=== PATIENT | male | born 1930 | race Two or more races ===

== ENCOUNTER 2017-09-24 16:43 | Inpatient (IN) | payer MEDICARE ==
[~2017-09-24] VITALS: Ht 175.3 cm; Wt 73.5 kg
[2017-09-24] MEDS ORDERED: DEXTROSE 50% 50 ML DISP.SYRIN IV PRN (17:15)
[2017-09-24 17:41] VITALS: BP 96/52
[2017-09-24] MEDS ORDERED: IPRA3AMP IH ×2 (17:57)
[2017-09-24] MEDS ORDERED: PANT40TA2 PO (17:57)
[2017-09-24] MEDS ORDERED: RIVA10TA PO (17:57)
[2017-09-24] MEDS ORDERED: BUME1TAB4 PO (17:57)
[2017-09-24] MEDS ORDERED: METO-358 PO (17:57)
[2017-09-24] MEDS ORDERED: ATOR20TA PO (17:57)
[2017-09-24] MEDS ORDERED: HYDR-3326 PO (17:57)
[2017-09-24] MEDS ORDERED: ACET-73 PO (17:57)
[2017-09-24] MEDS ORDERED: ISOS30TA6 PO (17:57)
[2017-09-24] MEDS ORDERED: DOCU-141 PO (17:57)
[2017-09-24] MEDS ORDERED: FLUT9.9S NS (17:57)
[2017-09-24] MEDS ORDERED: ONDA4TAB5 PO (17:57)
[2017-09-24] MEDS ORDERED: INSU200I SQ (17:57)
[2017-09-24] MEDS ORDERED: TIOT4MIS3 IH (17:57)
[2017-09-24] MEDS ORDERED: CHOL400T32 PO (17:57)
--- NOTE | 2017-09-24 19:30 | NUR ---
PT IN ROOM ALERT AWAKE ORIENTED SITTING UP IN CHAIR IN NO ACUTE DISTRESS. ABLE TO FOLLOW SIMPLE COMMANDS WITHOUT DIFFICULTY. NOTED WITH NON PRODUCTIVE COUGH WITH COURSE BILATERAL LUNGS. PT IS ON CONTINUOUS OXYGEN 3L/MIN VIA N/C. DENIES ANY PAIN, HEADACHES, OR SOB. NO S/S OF HYPER/HYPOGLYCEMIA. SKIN TO COCCYX NOTED REDNESS WITH NO SKIN BREAKDOWN. BILATERAL UPPER EXTREMITIES NOTED WITH BRUISING. PT REMINDED OF FLUID RESTRICTION AND TO USE CALL LIGHT FOR ASSISTANCE WHEN NEEDED. MD AWARE OF AWAITING MEDICATION ORDERS. CONTINUE TO MONITOR. URINAL PLACED WITHIN REACH, HOB ELEVATED 30 DEGREES AND 3 SIDE RAILS RAISED.
[2017-09-24 20:05] VITALS: BP 92/64
[2017-09-24] MEDS: BLOOD SUGAR DIAGNOSTIC 1 EACH STRIP VI SCH (20:59)
[2017-09-24] MEDS: INSULIN REGULAR, HUMAN 300 UNIT/3 ML VIAL SQ PRN (21:05)
--- NOTE | 2017-09-25 06:00 | NUR ---
Pt in room alert awake sitting up in chair. Pt's oxygen now 2.5L/min and denies any SOB or pain. Able to follow simple commands. Call light placed within reach. Encouraged deep breathing exercises. Continue to monitor.
[2017-09-25] MEDS: BLOOD SUGAR DIAGNOSTIC 1 EACH STRIP VI SCH ×4 (06:32→20:01)
[2017-09-25 08:33] VITALS: BP 133/70
[2017-09-25] MEDS ORDERED: ISOSORBIDE MONONITRATE 30 MG TAB.SR.24H PO SCH (09:00)
[2017-09-25] MEDS ORDERED: HYDROCODONE/APAP 5-325MG TABLET PO PRN ×2 (09:00)
[2017-09-25] MEDS ORDERED: RIVAROXABAN 10 MG TABLET PO SCH (09:00)
[2017-09-25] MEDS ORDERED: METOPROLOL SUCCINATE XL 100 MG TAB.SR.24H PO SCH (09:00)
[2017-09-25] MEDS ORDERED: INSULIN LISPRO 1000 UNITS/10 ML VIAL(HUMALOG) SQ SCH (09:00)
[2017-09-25] MEDS ORDERED: PANTOPRAZOLE SODIUM 40 MG TABLET.DR PO SCH (09:00)
[2017-09-25] MEDS ORDERED: IPRATROPIUM BROMIDE 0.5 MG/2.5 ML NEBU NEB PRN (09:00)
[2017-09-25] MEDS ORDERED: ONDANSETRON HCL 4 MG TABLET PO PRN (09:00)
[2017-09-25] MEDS ORDERED: ACETAMINOPHEN 325 MG TABLET PO PRN (09:15)
[2017-09-25] MEDS ORDERED: ALBUTEROL SULFATE 2.5 MG/ 0.5 ML NEBU NEB PRN (09:30)
[2017-09-25] MEDS: CHOLECALCIFEROL 400 UNITS TABLET PO SCH (10:31)
[2017-09-25] MEDS: BUMETANIDE 1 MG TABLET PO SCH ×2 (10:32→17:26)
[2017-09-25] MEDS: FLUTICASONE PROP NASAL SPRAY 16 GM BOTTLE NS SCH (10:33)
[2017-09-25] MEDS: IPRATROPIUM BROMIDE 0.5 MG/2.5 ML NEBU NEB SCH ×2 (10:50→19:22)
[2017-09-25] MEDS: ALBUTEROL SULFATE 2.5 MG/ 0.5 ML NEBU NEB SCH ×2 (10:50→19:22)
[2017-09-25] MEDS: STIOLTO RESPIMAT INHALER INH SCH (11:39)
[2017-09-25] MEDS ORDERED: [UNRECOGNIZED DRUG - REMARK] SQ PRN (11:45)
[2017-09-25] MEDS ORDERED: [UNRECOGNIZED DRUG - REMARK] SQ PRN (11:45)
[2017-09-25] MEDS ORDERED: DEXTROSE 50% 50 ML DISP.SYRIN IV PRN ×2 (11:45)
[2017-09-25] MEDS: METOPROLOL SUCCINATE XL 50 MG TAB.SR.24H PO SCH (13:30)
[2017-09-25] MEDS: ISOSORBIDE MONONITRATE 30 MG TAB.SR.24H PO SCH (13:30)
[2017-09-25] MEDS: PANTOPRAZOLE SODIUM 40 MG TABLET.DR PO SCH (13:31)
[2017-09-25] MEDS ORDERED: FERR325T28 PO (13:37)
[2017-09-25 14:35] LABS: BASOPHILS % (AUTO) 0.8 % (0.0-2.0); EOSINOPHILS # (AUTO) 0.1 K/uL (0.0-0.7); EOSINOPHILS % (AUTO) 1.6 % (0.0-7.0); HEMOGLOBIN 9.8 g/dL (12.5-16.3); LYMPHOCYTES # (AUTO) 0.8 K/uL (20.0-40.0); LYMPHOCYTES % (AUTO) 13.6 % (20.5-51.5); MEAN CORPUSCULAR HEMOGLOBIN 23.7 uug (23.8-33.4); MEAN CORPUSCULAR HGB CONC 32 g/dL (32.5-36.3); MEAN CORPUSCULAR VOLUME 75.2 fL (73.0-96.2); MONOCYTES # (AUTO) 0.5 K/uL (2.0-10.0); NEUTROPHILS # (AUTO) 4.2 K/uL (1.8-8.9); PLATELET COUNT (AUTO) 114 K/uL (152-348); RED BLOOD CELL COUNT(AUTO) 4.12 MIL/uL (4.06-5.63); WHITE BLOOD COUNT (AUTO) 5.6 K/uL (3.6-10.2)
[2017-09-25 14:38] LABS: CARBON DIOXIDE 34 mmol/L (21-32); CHLORIDE 97 mmol/L (98-107); CREATININE 1.4 mg/dL (0.6-1.3); GLUCOSE 129 mg/dL (74-106); UREA NITROGEN, BLOOD 42 mg/dL (7-18)
[2017-09-25 14:44] LABS: ALANINE AMINOTRANSFERASE 40 U/L (16-63); ALKALINE PHOSPHATASE 112 U/L (50-136); ASPARTATE AMINOTRANSFERASE 36 U/L (15-37); BILIRUBIN,TOTAL 0.6 mg/dL (0.2-1.0); TOTAL PROTEIN, SERUM 6.7 g/dL (6.4-8.2)
[2017-09-25] MEDS ORDERED: BLOOD SUGAR DIAGNOSTIC 1 EACH STRIP VI SCH ×2 (16:30→21:00)
[2017-09-25] MEDS: RIVAROXABAN 10 MG TABLET PO SCH (17:30)
[2017-09-25] MEDS: INSULIN REGULAR, HUMAN 300 UNIT/3 ML VIAL SQ PRN (17:46)
[2017-09-25 19:30] VITALS: BP 124/53
--- NOTE | 2017-09-25 19:30 | NUR ---
PT IN ROOM SITTING UP IN CHAIR ALERT, AWAKE, AND ORIENTED IN NO RESP DISTRESS. PT STATES MILD LABORED BREATHING UPON EXERTION. MAINTAINING OXYGEN AT 3L/MIN VIA N/C. ABLE TO FOLLOW SIMPLE COMMANDS WITHOUT DIFFICULTY. REQUIRES STANDBY ASSISTANCE WITH ADLS. REMINDED PT TO USE CALL LIGHT FOR ASSISTANCE. URINAL AT BEDSIDE AND PT MADE AWARE OF FLUID RESTRICTION FOR THE REMAINDER OVER NIGHT. VERBALIZED UNDERSTANDING. NO S/S OF HYPER/HYPOGLYCEMIA. V/S ARE WNL. CONTINUE TO MONITOR.
--- NOTE | 2017-09-25 19:38 | NUR ---
EDEMA NOTED TO LOWER BACK AND WAIST. +1PITTING Addendum: 09/25/17 at 1938 by Criss Rutherford RN Amended: Links added.
[2017-09-25] MEDS: ATORVASTATIN 20 MG TABLET PO SCH (20:01)
[2017-09-26] MEDS: ALBUTEROL SULFATE 2.5 MG/ 0.5 ML NEBU NEB SCH ×4 (01:08→19:54)
[2017-09-26] MEDS: IPRATROPIUM BROMIDE 0.5 MG/2.5 ML NEBU NEB SCH ×4 (01:08→19:54)
--- NOTE | 2017-09-26 05:30 | NUR ---
PT ABLE TO SLEEP IN ROOM WITHOUT DIFFICULTY. MAINTAINING OXYGEN 3L/MIN VIA N/C. PT COMFORTABLE SLEEPING WITH HOB 45 DEGREES OR SITTING ON THE SIDE OF BED. PT REMINDED OF FLUID RESTRICTION AND TO USE CALL LIGHT FOR ASSISTANCE. NO EPISODES OF SOB, PAIN, OR DISCOMFORT. NO S/S OF HYPER/HYPOGLYCEMIA. CONTINUE TO MONITOR.
[2017-09-26] MEDS: BLOOD SUGAR DIAGNOSTIC 1 EACH STRIP VI SCH ×4 (07:33→21:13)
[2017-09-26 08:00] VITALS: BP 111/63
[2017-09-26] MEDS: PANTOPRAZOLE SODIUM 40 MG TABLET.DR PO SCH (08:26)
[2017-09-26] MEDS: CHOLECALCIFEROL 400 UNITS TABLET PO SCH (08:26)
[2017-09-26] MEDS: BUMETANIDE 1 MG TABLET PO SCH ×2 (08:26→16:57)
[2017-09-26] MEDS: METOPROLOL SUCCINATE XL 50 MG TAB.SR.24H PO SCH (08:27)
[2017-09-26] MEDS: ISOSORBIDE MONONITRATE 30 MG TAB.SR.24H PO SCH (08:27)
[2017-09-26] MEDS: FLUTICASONE PROP NASAL SPRAY 16 GM BOTTLE NS SCH (08:27)
[2017-09-26] MEDS: STIOLTO RESPIMAT INHALER INH SCH (08:28)
[2017-09-26] MEDS: INSULIN REGULAR, HUMAN 300 UNIT/3 ML VIAL SQ PRN ×3 (08:28→21:26)
--- NOTE | 2017-09-26 10:00 | NUR ---
pt seen on rounding. pt continues to be on 2 liters oxygen and desats without it. bp wnl limits. pt continues to be on 1200 fluid restrictions. pt understands. no new injuries. pt continues to have edema on back and legs. showed non productive cough. no sob noted. will continue to monitor.
--- NOTE | 2017-09-26 15:17 | NUR ---
pt family requested to have therapeutic pass. agreed and gave torb. family signed therapeutic pass. pt left at 1300 and returned at 150o. vitals stable. pt had own oxygen tank. cxr ordered by md muhammad. will continue to monitor.
[2017-09-26] MEDS: RIVAROXABAN 10 MG TABLET PO SCH (17:01)
--- NOTE | 2017-09-26 18:51 | NUR ---
pt stable throughout the day. xrays seen and pt had infiltrates. awaiting md orders. pt continues to be stable. pt had out on pass and came back to hospital stable. fluid restrictions implemented. will endorse to shift production associate nurse.
--- NOTE | 2017-09-26 19:50 | NUR ---
Pt sitting on the chair at bedside and receiving his breathing treatment. On 2L O2 via NC, saturating and tolerating well. No acute distress noted. No SOB. Wheezing noted on the right side during auscultation. No c/o difficulty breathing. Safety measures maintained. Call light and personal belongings within reach. Will continue to monitor.
[2017-09-26] MEDS: DOCUSATE SODIUM 100 MG CAPSULE PO SCH (21:12)
[2017-09-26] MEDS: ATORVASTATIN 20 MG TABLET PO SCH (21:12)
[2017-09-26 21:47] VITALS: BP 100/65
[2017-09-27] MEDS: ALBUTEROL SULFATE 2.5 MG/ 0.5 ML NEBU NEB SCH ×4 (00:49→14:20)
[2017-09-27] MEDS: IPRATROPIUM BROMIDE 0.5 MG/2.5 ML NEBU NEB SCH ×4 (00:49→14:20)
--- NOTE | 2017-09-27 05:51 | NUR ---
Pt slept comfortably at night. Meds and insulin coverage given per MD's order. Pt compliant. Received scheduled breathing treatment, tolerating well. Still on 2L O2 via NC, saturating well and WNL. All needs attended to promptly. Will endorse to day shift RN. Continue to monitor.
[2017-09-27] MEDS: BLOOD SUGAR DIAGNOSTIC 1 EACH STRIP VI SCH ×4 (06:34→21:14)
[2017-09-27 07:30] VITALS: BP 106/61
[2017-09-27] MEDS: STIOLTO RESPIMAT INHALER INH SCH (08:12)
[2017-09-27] MEDS: FLUTICASONE PROP NASAL SPRAY 16 GM BOTTLE NS SCH (08:12)
[2017-09-27] MEDS: PANTOPRAZOLE SODIUM 40 MG TABLET.DR PO SCH (08:13)
[2017-09-27] MEDS: BUMETANIDE 1 MG TABLET PO SCH ×2 (08:13→16:48)
[2017-09-27] MEDS: METOPROLOL SUCCINATE XL 50 MG TAB.SR.24H PO SCH (08:13)
[2017-09-27] MEDS: ISOSORBIDE MONONITRATE 30 MG TAB.SR.24H PO SCH (08:13)
[2017-09-27] MEDS: CHOLECALCIFEROL 400 UNITS TABLET PO SCH (08:13)
[2017-09-27] MEDS: INSULIN REGULAR, HUMAN 300 UNIT/3 ML VIAL SQ PRN ×4 (08:18→21:19)
--- NOTE | 2017-09-27 10:12 | NUR ---
pt seen on rounding. pt breathing and hr within normal limits. no sob noted. pt continues to desat without oxygen. rt states that pt is clear of wheezing. will continue to monitor.
[2017-09-27] MEDS: RIVAROXABAN 10 MG TABLET PO SCH (16:46)
--- NOTE | 2017-09-27 17:18 | NUR ---
md ordered to have post void bladder scan. bladder scan done. pt retained 51 ml total. will continue to monitor for signs of retention.
[2017-09-27 20:08] VITALS: BP 87/56
[2017-09-27] MEDS ORDERED: TAMSULOSIN HCL 0.4 MG CAP.SR.24H PO SCH (21:00)
[2017-09-27] MEDS: ATORVASTATIN 20 MG TABLET PO SCH (21:15)
[2017-09-28] MEDS: IPRATROPIUM BROMIDE 0.5 MG/2.5 ML NEBU NEB SCH ×4 (00:33→19:06)
[2017-09-28] MEDS: ALBUTEROL SULFATE 2.5 MG/ 0.5 ML NEBU NEB SCH ×4 (00:33→19:06)
--- NOTE | 2017-09-28 03:38 | NUR ---
Post void bladder scan done, 673cc noted. call center dispatcher MD (Dr. Connelly) made aware, ordered for straight cath. Order carried out and done, 700cc was taken out via straight cath. Will continue to monitor.
[2017-09-28] MEDS: BLOOD SUGAR DIAGNOSTIC 1 EACH STRIP VI SCH ×4 (06:41→20:32)
--- NOTE | 2017-09-28 07:30 | NUR ---
Received asleep at around 0730, on via N/c, no sob noted , respiration even and unlabored, V/S stable, no distress noted. Will continue to monitor .
[2017-09-28 07:51] LABS: ALANINE AMINOTRANSFERASE 35 U/L (16-63); ALKALINE PHOSPHATASE 125 U/L (50-136); ASPARTATE AMINOTRANSFERASE 35 U/L (15-37); BILIRUBIN,TOTAL 0.8 mg/dL (0.2-1.0); CARBON DIOXIDE 32 mmol/L (21-32); CHLORIDE 98 mmol/L (98-107); CREATININE 1.5 mg/dL (0.6-1.3); GLUCOSE 108 mg/dL (74-106); MAGNESIUM 1.6 mg/dL (1.8-2.4); PHOSPHOROUS 3.2 mg/dL (2.5-4.9); POTASSIUM 3.8 mmol/L (3.5-5.1); UREA NITROGEN, BLOOD 45 mg/dL (7-18); URIC ACID 8.6 mg/dL (3.5-7.2)
[2017-09-28 08:21] VITALS: BP 113/49
[2017-09-28 08:21] LABS: BASOPHILS # (AUTO) 0.1 K/uL (0.0-8.0); BASOPHILS % (AUTO) 0.9 % (0.0-2.0); EOSINOPHILS # (AUTO) 0.1 K/uL (0.0-0.7); EOSINOPHILS % (AUTO) 1.2 % (0.0-7.0); HEMATOCRIT 32.2 % (36.7-47.1); HEMOGLOBIN 10.2 g/dL (12.5-16.3); LYMPHOCYTES # (AUTO) 0.9 K/uL (20.0-40.0); MEAN CORPUSCULAR HGB CONC 32 g/dL (32.5-36.3); MEAN CORPUSCULAR VOLUME 75.3 fL (73.0-96.2); MONOCYTES # (AUTO) 0.6 K/uL (2.0-10.0); MONOCYTES % (AUTO) 9.5 % (0.0-11.0); NEUTROPHILS # (AUTO) 4.3 K/uL (1.8-8.9); NEUTROPHILS % (AUTO) 72.4 % (38.5-71.5); PLATELET COUNT (AUTO) 116 K/uL (152-348); RED BLOOD CELL COUNT(AUTO) 4.27 MIL/uL (4.06-5.63); WHITE BLOOD COUNT (AUTO) 5.9 K/uL (3.6-10.2)
[2017-09-28] MEDS: STIOLTO RESPIMAT INHALER INH SCH (09:29)
[2017-09-28] MEDS: FLUTICASONE PROP NASAL SPRAY 16 GM BOTTLE NS SCH (09:29)
[2017-09-28] MEDS: PANTOPRAZOLE SODIUM 40 MG TABLET.DR PO SCH (09:31)
[2017-09-28] MEDS: ISOSORBIDE MONONITRATE 30 MG TAB.SR.24H PO SCH (09:32)
[2017-09-28] MEDS: BUMETANIDE 1 MG TABLET PO SCH ×2 (09:32→17:29)
[2017-09-28] MEDS: METOPROLOL SUCCINATE XL 50 MG TAB.SR.24H PO SCH (09:33)
[2017-09-28] MEDS: CHOLECALCIFEROL 400 UNITS TABLET PO SCH (09:34)
[2017-09-28] MEDS: INSULIN REGULAR, HUMAN 300 UNIT/3 ML VIAL SQ PRN ×2 (11:52→20:40)
--- NOTE | 2017-09-28 15:00 | NUR ---
Patient ambulates with PT in the hallway, tolerated well. Medication compliant , swallowed whole pills with no problem, no c/o pain noted, voided 100cc. Bladder scan done at 1030, 76cc noted. Showered with PT. Patient was up in the chair after shower, son at bedside, no s/s of distress noted. Will continue to monitor.
[2017-09-28] MEDS: RIVAROXABAN 10 MG TABLET PO SCH (17:29)
[2017-09-28 19:30] VITALS: BP 115/65
--- NOTE | 2017-09-28 19:45 | NUR ---
Pt resting comfortably in bed. AAO x4. On 2L O2 via NC, tolerating well. No acute distress noted. No c/o pain or discomfort. Monitoring for signs of retention. Pt voiding normally at this time. No abdominal distention noted. Pt aware and was instructed to report any signs of difficulty voiding or if unable to do so. Safety measures maintained. Call light and personal belongings within reach. Will continue to monitor.
[2017-09-28] MEDS: MAGNESIUM OXIDE 400 MG TABLET PO SCH (20:32)
[2017-09-28] MEDS: ATORVASTATIN 20 MG TABLET PO SCH (20:32)
[2017-09-28] MEDS: TAMSULOSIN HCL 0.4 MG CAP.SR.24H PO SCH (20:32)
[2017-09-29] MEDS: ALBUTEROL SULFATE 2.5 MG/ 0.5 ML NEBU NEB SCH ×4 (00:47→20:00)
[2017-09-29] MEDS: IPRATROPIUM BROMIDE 0.5 MG/2.5 ML NEBU NEB SCH ×4 (00:47→20:00)
--- NOTE | 2017-09-29 06:16 | NUR ---
Pt slept comfortably at night. VSS. Meds given per MD's order. Pt compliant with plan of care. All needs attended to promptly. Pt woke up early and sitting on the chair at bedside. Still on 2L O2 via NC, tolerating well. Voiding regularly, no distention noted. Voided 1500 mL during this shift. Will endorse to day shift RN. Continue to monitor.
[2017-09-29] MEDS: BLOOD SUGAR DIAGNOSTIC 1 EACH STRIP VI SCH ×4 (06:38→20:55)
[2017-09-29 08:29] VITALS: BP 126/58
[2017-09-29] MEDS: METOPROLOL SUCCINATE XL 50 MG TAB.SR.24H PO SCH (08:50)
[2017-09-29] MEDS: ISOSORBIDE MONONITRATE 30 MG TAB.SR.24H PO SCH (08:50)
[2017-09-29] MEDS: BUMETANIDE 1 MG TABLET PO SCH ×2 (08:50→16:58)
[2017-09-29] MEDS: PANTOPRAZOLE SODIUM 40 MG TABLET.DR PO SCH (08:50)
[2017-09-29] MEDS: STIOLTO RESPIMAT INHALER INH SCH (08:51)
[2017-09-29] MEDS: FLUTICASONE PROP NASAL SPRAY 16 GM BOTTLE NS SCH (08:51)
[2017-09-29] MEDS: INSULIN REGULAR, HUMAN 300 UNIT/3 ML VIAL SQ PRN ×4 (09:14→21:00)
--- NOTE | 2017-09-29 09:25 | NUR ---
i agree Addendum: 09/29/17 at 09 by SKIP LOU OT Amended: Links added.
[2017-09-29] MEDS: CHOLECALCIFEROL 1,000 UNIT TABLET PO SCH (11:45)
[2017-09-29] MEDS: DOCUSATE SODIUM 100 MG CAPSULE PO SCH (13:59)
--- NOTE | 2017-09-29 15:12 | NUR ---
pt seen o rounding. pt continues to be alert and oriented x 3. vitals stable. pt reduced o2 to 1.5 at 95%. will continue to monitor. pt assessed for post void bladder scan immediately after voiding. 0 ml retained. will continue to monitor.
[2017-09-29] MEDS: RIVAROXABAN 10 MG TABLET PO SCH (16:57)
--- NOTE | 2017-09-29 18:34 | NUR ---
reduced o2 to 1L and pt is satting at 95%. pt had a bowel movement. will endorse to shift superintendent caustic cresylate nurse.
--- NOTE | 2017-09-29 20:00 | NUR ---
Received pt in bed appearing to be asleep, but easily arousable to verbal stimuli and light touch. No acute distress noted. Verbally responsive and able to make needs known. Denies pain or discomfort. All safety measures and fall precautions maintained. Call light and all personal belongings within reach. Will continue to monitor.
[2017-09-29 20:21] VITALS: BP 113/70
[2017-09-29] MEDS: MAGNESIUM OXIDE 400 MG TABLET PO SCH (20:55)
[2017-09-29] MEDS: TAMSULOSIN HCL 0.4 MG CAP.SR.24H PO SCH (20:55)
[2017-09-29] MEDS: ATORVASTATIN 20 MG TABLET PO SCH (20:55)
[2017-09-30] MEDS: IPRATROPIUM BROMIDE 0.5 MG/2.5 ML NEBU NEB SCH ×4 (01:06→19:17)
[2017-09-30] MEDS: ALBUTEROL SULFATE 2.5 MG/ 0.5 ML NEBU NEB SCH ×4 (01:07→19:17)
[2017-09-30] MEDS: BLOOD SUGAR DIAGNOSTIC 1 EACH STRIP VI SCH ×4 (06:46→20:37)
[2017-09-30] MEDS: CHOLECALCIFEROL 1,000 UNIT TABLET PO SCH (08:51)
[2017-09-30] MEDS: FLUTICASONE PROP NASAL SPRAY 16 GM BOTTLE NS SCH (08:51)
[2017-09-30] MEDS: ALLOPURINOL 100 MG TABLET PO SCH (08:51)
[2017-09-30] MEDS: BUMETANIDE 1 MG TABLET PO SCH ×2 (08:51→16:20)
[2017-09-30] MEDS: ISOSORBIDE MONONITRATE 30 MG TAB.SR.24H PO SCH (08:52)
[2017-09-30] MEDS: METOPROLOL SUCCINATE XL 50 MG TAB.SR.24H PO SCH (08:52)
[2017-09-30] MEDS: PANTOPRAZOLE SODIUM 40 MG TABLET.DR PO SCH (08:52)
[2017-09-30] MEDS: INSULIN REGULAR, HUMAN 300 UNIT/3 ML VIAL SQ PRN ×3 (08:53→20:39)
[2017-09-30] MEDS: STIOLTO RESPIMAT INHALER INH SCH ×3 (08:53→14:06)
[2017-09-30 08:57] VITALS: BP 106/59
[2017-09-30] MEDS: RIVAROXABAN 10 MG TABLET PO SCH (16:22)
--- NOTE | 2017-09-30 18:31 | NUR ---
took last ventolin from pharmacy. returned boxes to pt family. no ventolin on pharmacy. no signs of retnetion during shift. pt given allopurinol for possible gout. pictures taken and placed in chart. will endorse to night oly nurse.
[2017-09-30 20:25] VITALS: BP 116/68
[2017-09-30] MEDS: ATORVASTATIN 20 MG TABLET PO SCH (20:32)
[2017-09-30] MEDS: MAGNESIUM OXIDE 400 MG TABLET PO SCH (20:33)
[2017-09-30] MEDS: TAMSULOSIN HCL 0.4 MG CAP.SR.24H PO SCH (20:33)
[2017-10-01] MEDS: IPRATROPIUM BROMIDE 0.5 MG/2.5 ML NEBU NEB SCH ×4 (00:45→20:09)
[2017-10-01] MEDS: ALBUTEROL SULFATE 2.5 MG/ 0.5 ML NEBU NEB SCH ×4 (00:45→20:09)
--- NOTE | 2017-10-01 05:33 | NUR ---
pt slept well through the night and was easily awoken, pt denied having any pain or difficulty breathing. pt respirations were increased with movement but pt denied having any SOB, pt tolerating well on 2LNC. all needs met safety measures are in place, call light within reach, bed alarm is on. Addendum: 10/01/17 at 0646 by DEREJE KNIGHT RN pt had a post void residual of 407ml in the morning after urinating 250ml, pt refused to be strait cath'ed, will continue to monitor.
[2017-10-01] MEDS: BLOOD SUGAR DIAGNOSTIC 1 EACH STRIP VI SCH ×4 (06:41→20:44)
[2017-10-01 07:46] VITALS: BP 108/65
[2017-10-01] MEDS: BUMETANIDE 1 MG TABLET PO SCH ×2 (08:21→16:52)
[2017-10-01] MEDS: METOPROLOL SUCCINATE XL 50 MG TAB.SR.24H PO SCH (08:22)
[2017-10-01] MEDS: ALLOPURINOL 100 MG TABLET PO SCH (08:23)
[2017-10-01] MEDS: ISOSORBIDE MONONITRATE 30 MG TAB.SR.24H PO SCH (08:23)
[2017-10-01] MEDS: PANTOPRAZOLE SODIUM 40 MG TABLET.DR PO SCH (08:24)
[2017-10-01] MEDS: FLUTICASONE PROP NASAL SPRAY 16 GM BOTTLE NS SCH (08:24)
[2017-10-01] MEDS: CHOLECALCIFEROL 1,000 UNIT TABLET PO SCH (08:24)
[2017-10-01] MEDS: STIOLTO RESPIMAT INHALER INH SCH (08:25)
--- NOTE | 2017-10-01 09:58 | NUR ---
pt seen on rounding. pt assessed. pt has wheezes on lung sounds. pt has leg edema pitting +2 but residing compared to admission. pt placed on 1 L satting wnl. bladder scan done and 90 retained. no catheterization noted. pt seen to have blood around nose. pt states that it is because of the high oxygen flow rate. cleaned nose. no bleeding seen. will continue to reassess for complications.
[2017-10-01] MEDS: INSULIN REGULAR, HUMAN 300 UNIT/3 ML VIAL SQ PRN ×3 (11:47→20:47)
[2017-10-01] MEDS: RIVAROXABAN 10 MG TABLET PO SCH (16:51)
--- NOTE | 2017-10-01 19:30 | NUR ---
Received patient from day shift RN. patient is currently stable with no signs of pain, sob, or acute distress. Pertinent assessment completed. Noted with o2 via NC at 1L. Vital signs WNL. patient on a 1500mL fluid restriction per day. patient aware and following fluid restriction. Room checked for safety. Provided clutter free environment in room to prevent patient from falls. Bed in low position & locked. Call light within reach. Will continue to monitor through shift.
[2017-10-01 20:44] VITALS: BP 105/67
[2017-10-01] MEDS: ATORVASTATIN 20 MG TABLET PO SCH (20:44)
[2017-10-01] MEDS: TAMSULOSIN HCL 0.4 MG CAP.SR.24H PO SCH (20:44)
[2017-10-01] MEDS: MAGNESIUM OXIDE 400 MG TABLET PO SCH (20:44)
--- NOTE | 2017-10-01 22:00 | NUR ---
Bladder scan performed per MD order. Bladder currently retaining 0cc. Patient just voided in urinal total of 300cc. Will continue to monitor through shift.
[2017-10-02] MEDS: IPRATROPIUM BROMIDE 0.5 MG/2.5 ML NEBU NEB SCH ×4 (01:06→18:51)
[2017-10-02] MEDS: ALBUTEROL SULFATE 2.5 MG/ 0.5 ML NEBU NEB SCH ×4 (01:06→18:51)
--- NOTE | 2017-10-02 06:07 | NUR ---
Patient slept well through the night. No acute distress noted. All needs attended to promptly. Medications administered per MD order. Patient voiding well through shift into urinal. No retention noted after bladder scan performed. Fluid restriction maintained through shift. No s/s of hyperglycemia or hypoglycemia noted. patient kept clean & dry. Safety measures implemented. Call light within reach. Will endorse to oncoming nurse.
[2017-10-02] MEDS: BLOOD SUGAR DIAGNOSTIC 1 EACH STRIP VI SCH ×4 (06:30→20:59)
[2017-10-02 07:00] VITALS: BP 98/53
--- NOTE | 2017-10-02 08:39 | NUR ---
WOUND CARE CONSULT WOUND CARE RECEIVED CONSULT FOR LEFT TOE 1ST DIGIT. WOUND CARE WILL DEFER CONSULT AND TREATMENT PLAN TO SURGICAL TEAM THEY ARE FOLLOWING. PATIENT WITH DAGMAR AT 17, ALL PRESSURE ULCER PREVENTION MEASURES NOTED TO BE IN PLACE AT THIS TIME.
[2017-10-02] MEDS: ISOSORBIDE MONONITRATE 30 MG TAB.SR.24H PO SCH (09:00)
[2017-10-02] MEDS: METOPROLOL SUCCINATE XL 50 MG TAB.SR.24H PO SCH (09:00)
[2017-10-02] MEDS: FLUTICASONE PROP NASAL SPRAY 16 GM BOTTLE NS SCH (09:58)
[2017-10-02] MEDS: BUMETANIDE 1 MG TABLET PO SCH ×2 (09:59→17:40)
[2017-10-02] MEDS: PANTOPRAZOLE SODIUM 40 MG TABLET.DR PO SCH (09:59)
[2017-10-02] MEDS: ALLOPURINOL 100 MG TABLET PO SCH (09:59)
[2017-10-02] MEDS: CHOLECALCIFEROL 1,000 UNIT TABLET PO SCH (09:59)
[2017-10-02] MEDS: STIOLTO RESPIMAT INHALER INH SCH (10:00)
--- NOTE | 2017-10-02 10:00 | NUR ---
Pt bladder scan revealed 0ml retention of urine, post void. Will continue to monitor as ordered.
--- NOTE | 2017-10-02 11:52 | NUR ---
SBAR report received, board updated. Pt assessed, denies any c/o pain and states feeling just fine. Compliant with all routine morning medications, Blood pressure meds held due to low BP of 105/49, 60. No distress noted. Pt agrees to comply with all therapies as scheduled. All safety and comfort needs met. Call light and personal belongings within reach. Family visiting at this time. Will continue to monitor.
[2017-10-02] MEDS: INSULIN REGULAR, HUMAN 300 UNIT/3 ML VIAL SQ PRN ×2 (12:35→21:01)
--- NOTE | 2017-10-02 13:58 | NUR ---
INTERDISCIPLINARY TEAM CONFERENCE
[2017-10-02] MEDS: RIVAROXABAN 10 MG TABLET PO SCH (17:44)
--- NOTE | 2017-10-02 18:28 | NUR ---
Pt comfortably resting in bed. Pt compliant with routine medications administration, BS 166, 3 units administered per sliding scale. All safety and comfort needs attended to. Call light placed within reach. Will continue to monitor and endorse to on coming night nurse.
[2017-10-02 19:30] VITALS: BP 98/53
--- NOTE | 2017-10-02 19:30 | NUR ---
Patient sitting at bedside on wheelchair at start of shift. Patient denies pain, any discomfort, or sob. No acute distress noted. Pertinent assessment completed. Patient noted with Right bump on groin. Pictures taken and placed in chart. Will inform MD. On 1500mL fluid restriction. Patient aware & compliant with MD orders. On 1L o2 via nc. Vital signs within range at start of shift. Call light within reach. Will continue to monitor through shift.
[2017-10-02] MEDS: ATORVASTATIN 20 MG TABLET PO SCH (20:59)
[2017-10-02] MEDS: MAGNESIUM OXIDE 400 MG TABLET PO SCH (20:59)
[2017-10-02] MEDS: TAMSULOSIN HCL 0.4 MG CAP.SR.24H PO SCH (20:59)
--- NOTE | 2017-10-02 22:15 | NUR ---
Patient voided 250cc of urine in urinal. Bladder scan performed. Currently retaining 481cc in bladder. Explained MD order to patient. Patient is refusing any insertion of guerrero catheters. Explained risks & benefits. Educated patient. Patient is still strongly refusing x3. Denies any pain or discomfort. patient says he does not have any urgencies. Will monitor if patient is urinating during shift & will perform bladder scan again after second void. Will inform MD if patient is still retaining.
[2017-10-03] MEDS: ALBUTEROL SULFATE 2.5 MG/ 0.5 ML NEBU NEB SCH ×4 (00:44→18:50)
[2017-10-03] MEDS: IPRATROPIUM BROMIDE 0.5 MG/2.5 ML NEBU NEB SCH ×4 (00:44→18:50)
--- NOTE | 2017-10-03 01:00 | NUR ---
Patient voided 200cc of urine in urinal. Bladder scan performed again to f/u on last PVR result. PVR is 33. Patient verbalizes he does not want bladder scan to be done anymore because he does not thing he needs it since he is urinating. Explained why bladder scan is being performed. Verbalizes understanding, but he is still saying he does not want it done. Patient made aware that I will inform MD regarding the situation and will endorse to day shift nurse to follow up.
[2017-10-03] MEDS: BLOOD SUGAR DIAGNOSTIC 1 EACH STRIP VI SCH ×4 (06:35→20:27)
[2017-10-03 07:00] VITALS: BP 129/54
--- NOTE | 2017-10-03 07:25 | NUR ---
RECEIVED REPORT FROM ANGLE ROLL OPERATOR NURSE, PATIENT IN BED AWAKE, COMPLAINING ABOUT THE ROOM MATE TAKING TOO MUCH SPACE IN THE ROOM, PATIENT WAS REASSURED THAT HE WILL GET EQUAL SPACE, AND PATIENTS ANXIETY WAS EASED. BED IN LOW POSITION, SIDE RAILS UP X2. PATIENTS WOUND IS DRY AND INTACT, NO BLEEDING. Addendum: 10/03/17 at 1837 by YURIY MCCALLUM RN WRONG PATIENT PLEASE DISREGARD
[2017-10-03] MEDS: ALLOPURINOL 100 MG TABLET PO SCH (08:17)
[2017-10-03] MEDS: BUMETANIDE 1 MG TABLET PO SCH ×2 (08:18→17:07)
[2017-10-03] MEDS: METOPROLOL SUCCINATE XL 50 MG TAB.SR.24H PO SCH (08:18)
[2017-10-03] MEDS: ISOSORBIDE MONONITRATE 30 MG TAB.SR.24H PO SCH (08:18)
[2017-10-03] MEDS: PANTOPRAZOLE SODIUM 40 MG TABLET.DR PO SCH (08:18)
[2017-10-03] MEDS: CHOLECALCIFEROL 1,000 UNIT TABLET PO SCH (08:19)
[2017-10-03] MEDS: FLUTICASONE PROP NASAL SPRAY 16 GM BOTTLE NS SCH (08:19)
[2017-10-03] MEDS: STIOLTO RESPIMAT INHALER INH SCH (08:19)
--- NOTE | 2017-10-03 10:00 | NUR ---
PATIENT REQUESTED TO AMBULATE WITH ASSISTANCE, PATIENT WALKED AROUND UNIT WITH WALKER AND OXYGEN TANK WITH SUPERVISION. PATIENT STOPPED TWICE TO SIT DOWN AND REST. PATIENT WAS CHECKED FOR OXYGEN SATURATION, 92% ON 1.5 LITERS.
[2017-10-03] MEDS: RIVAROXABAN 10 MG TABLET PO SCH (17:07)
--- NOTE | 2017-10-03 18:37 | NUR ---
PATIENT HAS BEEN COOPERATIVE WITH CARE, NO DISTRESS THROUGHOUT THE DAY. BILATERAL LOWER EXTREMITIES CONTINUE TO HAVE 2+ PITTING EDEMA. PATIENT TOLERATED AMBULATION WITH OXYGEN, WALKER AND SUPERVISION. ALL NEEDS MET AT THIS TIME. PATIENT UP IN CHAIR WATCHING TV.
[2017-10-03 19:30] VITALS: BP 113/56
--- NOTE | 2017-10-03 19:50 | NUR ---
Received pt sitting up in chair AAO x 4, no acute distress noted. Denies pain or discomfort at this time. Verbally responsive and able to make needs known. All safety measures and fall precautions maintained. Call light and all personal belongings within reach. Will continue to monitor.
[2017-10-03] MEDS: MAGNESIUM OXIDE 400 MG TABLET PO SCH (20:27)
[2017-10-03] MEDS: TAMSULOSIN HCL 0.4 MG CAP.SR.24H PO SCH (20:27)
[2017-10-03] MEDS: ATORVASTATIN 20 MG TABLET PO SCH (20:27)
[2017-10-03] MEDS: INSULIN REGULAR, HUMAN 300 UNIT/3 ML VIAL SQ PRN (20:33)
[2017-10-04] MEDS: ALBUTEROL SULFATE 2.5 MG/ 0.5 ML NEBU NEB SCH ×4 (00:45→19:28)
[2017-10-04] MEDS: IPRATROPIUM BROMIDE 0.5 MG/2.5 ML NEBU NEB SCH ×4 (00:45→19:28)
[2017-10-04] MEDS: BLOOD SUGAR DIAGNOSTIC 1 EACH STRIP VI SCH ×4 (06:33→21:10)
[2017-10-04 08:00] VITALS: BP 106/51
--- NOTE | 2017-10-04 08:00 | NUR ---
PT TX WAS NOT GIVEN PER PT REQUEST. PT WOULD LIKE TO FINISH EATING AT THIS TIME. PT REQUESTED RT TO COME AT A LATER TIME. PT HAS NO DISTRESS NOTED PT REMAINS ON O2. WILL CONTINUE TO MONITOR PT.
[2017-10-04] MEDS: PANTOPRAZOLE SODIUM 40 MG TABLET.DR PO SCH (08:04)
[2017-10-04] MEDS: CHOLECALCIFEROL 1,000 UNIT TABLET PO SCH (08:05)
[2017-10-04] MEDS: ISOSORBIDE MONONITRATE 30 MG TAB.SR.24H PO SCH (08:05)
[2017-10-04] MEDS: ALLOPURINOL 100 MG TABLET PO SCH (08:05)
[2017-10-04] MEDS: BUMETANIDE 1 MG TABLET PO SCH ×2 (08:05→16:31)
[2017-10-04] MEDS: STIOLTO RESPIMAT INHALER INH SCH (08:06)
[2017-10-04] MEDS: FLUTICASONE PROP NASAL SPRAY 16 GM BOTTLE NS SCH (08:06)
[2017-10-04] MEDS: METOPROLOL SUCCINATE XL 50 MG TAB.SR.24H PO SCH (08:06)
[2017-10-04] MEDS: INSULIN REGULAR, HUMAN 300 UNIT/3 ML VIAL SQ PRN ×2 (12:00→21:07)
[2017-10-04] MEDS: RIVAROXABAN 10 MG TABLET PO SCH (16:31)
--- NOTE | 2017-10-04 18:25 | NUR ---
Patient ambulated through the halls with supervision, tolerated well. Currently patient in bed, no distress noted, bed in low position, side rails up x2. Edema in feet have significantly decreased. All needs met at this time.
[2017-10-04 19:30] VITALS: BP 83/53
--- NOTE | 2017-10-04 19:30 | NUR ---
PT IN ROOM ALERT AWAKE IN NO ACUTE DISTRESS. ABLE TO MAKE NEEDS KNOWN. DENIES ANY PAIN, DIZZINESS, OR SOB. BP NOTED 83/53. DR SAAVEDRA MADE AWARE AND STATED TO HOLD ROUTINE HS FLOMAX AT THIS TIME. PT REMINDED TO ASK FOR ASSISTANCE WHEN NEEDED. HOB ELEVATED 30 DEGREES WITH CONTINUOUS OXYGEN AT 1.5L/MIN. PT MADE AWARE OF BREATHING TX TONIGHT. NO S/S OF HYPER/HYPOGLYCEMIA. CONTINUE TO MONITOR.
[2017-10-04] MEDS: MAGNESIUM OXIDE 400 MG TABLET PO SCH (20:56)
[2017-10-04] MEDS: ATORVASTATIN 20 MG TABLET PO SCH (20:56)
[2017-10-04] MEDS: TAMSULOSIN HCL 0.4 MG CAP.SR.24H PO SCH (21:00)
[2017-10-04 22:19] VITALS: BP 126/57
[2017-10-05] MEDS: IPRATROPIUM BROMIDE 0.5 MG/2.5 ML NEBU NEB SCH ×4 (00:55→20:12)
[2017-10-05] MEDS: ALBUTEROL SULFATE 2.5 MG/ 0.5 ML NEBU NEB SCH ×4 (00:55→20:12)
--- NOTE | 2017-10-05 06:00 | NUR ---
PT IN ROOM ALERT AWAKE IN NO ACUTE DISTRESS. DENIES ANY DIZZINESS, HEADACHES, OR SOB. MAINTAINING OXYGEN THERAPY AT 1.5L/MIN. ENCOURAGED PT TO ELEVATE LEGS ON PILLOW TO DECREASE EDEMA. NO S/S OF HYPER/HYPOGLYCEMIA AT THIS TIME. ABLE TO MAKE NEEDS KNOWN. CALL LIGHT PLACED WITHIN REACH. HOB ELEVATED 30 DEGREES. CALL LIGHT PLACED WITHIN REACH. URINAL AT BEDSIDE ABLE TO VOID WITHOUT DIFFICULTY.
[2017-10-05] MEDS: BLOOD SUGAR DIAGNOSTIC 1 EACH STRIP VI SCH ×4 (06:31→21:23)
[2017-10-05 08:28] VITALS: BP 137/64
[2017-10-05] MEDS: FLUTICASONE PROP NASAL SPRAY 16 GM BOTTLE NS SCH (08:30)
[2017-10-05] MEDS: PANTOPRAZOLE SODIUM 40 MG TABLET.DR PO SCH (08:31)
[2017-10-05] MEDS: DOCUSATE SODIUM 100 MG CAPSULE PO SCH (08:31)
[2017-10-05] MEDS: BUMETANIDE 1 MG TABLET PO SCH ×2 (08:31→17:11)
[2017-10-05] MEDS: ISOSORBIDE MONONITRATE 30 MG TAB.SR.24H PO SCH (08:31)
[2017-10-05] MEDS: STIOLTO RESPIMAT INHALER INH SCH (08:31)
[2017-10-05] MEDS: CHOLECALCIFEROL 1,000 UNIT TABLET PO SCH (08:32)
[2017-10-05] MEDS: ALLOPURINOL 100 MG TABLET PO SCH (08:32)
[2017-10-05] MEDS: METOPROLOL SUCCINATE XL 50 MG TAB.SR.24H PO SCH (08:32)
[2017-10-05] MEDS: INSULIN REGULAR, HUMAN 300 UNIT/3 ML VIAL SQ PRN ×3 (08:33→16:42)
--- NOTE | 2017-10-05 08:57 | NUR ---
pt seen on rounding. pt vitals continue to be stable. pt sats wnl with oxygen. no sob noted. pt given breathing treatments scheduled and medications whole. no aspirations noted. pt continues to have non productive cough. pt continues to walk with assist. left toe intact. legs continue to be swollen. will continue to monitor.
[2017-10-05] MEDS: RIVAROXABAN 10 MG TABLET PO SCH (17:10)
--- NOTE | 2017-10-05 18:54 | NUR ---
pt stable throughout the day. pt given insulin as prescribed. pt also given stool softener and pt had bm. pt continues to be on oxygen 1.5 and sats within normal limits. pt participated in therapy. pt continues to be sob during exercise. will endorse to word processing operator nurse.
--- NOTE | 2017-10-05 19:30 | NUR ---
PT IN ROOM UP IN CHAIR IN NO RESP DISTRESS. DENIES ANY HEADACHES, DIZZINESS, OR SOB. ABLE TO FOLLOW SIMPLE COMMANDS WITHOUT DIFFICULTY AND STATES FEELING TIRED FROM PREVIOUS PHYSICAL THERAPY EXERCISES. REMINDED PT TO ASK FOR ASSISTANCE WHEN NEEDED. NO S/S OF HYPER/HYPOGLYCEMIA PRESENT. CALL LIGHT WITHIN REACH. CONTINUE TO MONITOR. Addendum: 10/05/17 at 2208 by LORI LOREDO RN wrong user id
[2017-10-05] MEDS: TAMSULOSIN HCL 0.4 MG CAP.SR.24H PO SCH (21:18)
[2017-10-05] MEDS: MAGNESIUM OXIDE 400 MG TABLET PO SCH (21:18)
[2017-10-05] MEDS: ATORVASTATIN 20 MG TABLET PO SCH (21:18)
[2017-10-05 21:48] VITALS: BP 100/55
--- NOTE | 2017-10-05 22:00 | NUR ---
PT'S BLOOD SUGAR NOTED 131. REFUSED TO HAVE INSULIN AT NIGHT. NOTED AND CARRIED OUT.
--- NOTE | 2017-10-05 22:30 | NUR ---
PT'S DRESSING TO LEFT BIG TOE REPLACED. SITE CLEANSED WITH NS, PATTED DRY, BETADINE APPLIED, AND WRAPPED WITH KERLIX. PT TOLERATED WELL. CONTINUE TO MONITOR.
[2017-10-06] MEDS: IPRATROPIUM BROMIDE 0.5 MG/2.5 ML NEBU NEB SCH ×4 (00:52→19:01)
[2017-10-06] MEDS: ALBUTEROL SULFATE 2.5 MG/ 0.5 ML NEBU NEB SCH ×4 (00:52→19:01)
--- NOTE | 2017-10-06 05:53 | NUR ---
PT IN ROOM ABLE TO SLEEP THROUGHOUT NIGHT WITHOUT DIFFICULTY. OXYGEN MAINTAINED 1.5L/MIN WITHOUT ANY C/O RESP DISTRESS. ABLE TO MAKE NEEDS KNOWN AND USE URINAL TO VOID. PT MADE AWARE OF CURRENT FLUID RESTRICTION OF 1200ML/24HRS PER MD NOTES. CONTINUE TO MONITOR. CALL LIGHT PLACED WITHIN REACH. DRESSING TO LEFT BIG TOE INTACT WITHOUT DRAINAGE.
[2017-10-06] MEDS: BLOOD SUGAR DIAGNOSTIC 1 EACH STRIP VI SCH ×4 (06:45→20:19)
[2017-10-06 08:01] VITALS: BP 107/57
[2017-10-06] MEDS: INSULIN REGULAR, HUMAN 300 UNIT/3 ML VIAL SQ PRN ×4 (08:15→20:24)
[2017-10-06] MEDS: ISOSORBIDE MONONITRATE 30 MG TAB.SR.24H PO SCH (08:17)
[2017-10-06] MEDS: METOPROLOL SUCCINATE XL 50 MG TAB.SR.24H PO SCH (08:17)
[2017-10-06] MEDS: PANTOPRAZOLE SODIUM 40 MG TABLET.DR PO SCH (08:17)
[2017-10-06] MEDS: STIOLTO RESPIMAT INHALER INH SCH (08:18)
[2017-10-06] MEDS: BUMETANIDE 1 MG TABLET PO SCH ×2 (08:18→16:56)
[2017-10-06] MEDS: ALLOPURINOL 100 MG TABLET PO SCH (08:18)
[2017-10-06] MEDS: FLUTICASONE PROP NASAL SPRAY 16 GM BOTTLE NS SCH (08:18)
[2017-10-06] MEDS: CHOLECALCIFEROL 1,000 UNIT TABLET PO SCH (08:18)
--- NOTE | 2017-10-06 15:50 | NUR ---
I agree Addendum: 10/06/17 at 1551 by DORIAN URBAN OT Amended: Links added.
[2017-10-06] MEDS: RIVAROXABAN 10 MG TABLET PO SCH (16:52)
--- NOTE | 2017-10-06 17:52 | NUR ---
Pt reassignment and full SBAR report received by CARRIE Benjamin.
[2017-10-06] MEDS: DOCUSATE SODIUM 100 MG CAPSULE PO SCH (19:04)
--- NOTE | 2017-10-06 19:30 | NUR ---
Patient received from day shift nurse. On 1.5L o2 via NC. Denies SOB at the moment. No acute distress noted. Vital signs within range. Pertinent assessment completed. Left toe wrapped up and dressing was changed earlier today per day shift RN by the Hvac R Tech. Bed in low position & locked. Call light within reach. will continue to monitor patient through shift.
[2017-10-06] MEDS: TAMSULOSIN HCL 0.4 MG CAP.SR.24H PO SCH (20:19)
[2017-10-06] MEDS: ATORVASTATIN 20 MG TABLET PO SCH (20:19)
[2017-10-06] MEDS: MAGNESIUM OXIDE 400 MG TABLET PO SCH (20:19)
[2017-10-06 21:12] VITALS: BP 118/58
[2017-10-07] MEDS: IPRATROPIUM BROMIDE 0.5 MG/2.5 ML NEBU NEB SCH ×4 (00:53→18:30)
[2017-10-07] MEDS: ALBUTEROL SULFATE 2.5 MG/ 0.5 ML NEBU NEB SCH ×4 (00:53→18:30)
[2017-10-07] MEDS: BLOOD SUGAR DIAGNOSTIC 1 EACH STRIP VI SCH ×4 (06:33→20:39)
--- NOTE | 2017-10-07 06:44 | NUR ---
Blood sugar check this AM was 124. No coverage needed. Patient stable through shift. Slept well during the night. No acute distress noted. All needs attended to. Medications administered per MD order. Safety measures implemented. No s/s of hypoglycemia or hyperglycemia. Left toe wound kept clean, dry, intact. Dressing still intact. Call light within reach. Will endorse to day shift RN.
[2017-10-07 09:10] VITALS: BP 102/58
[2017-10-07] MEDS: ISOSORBIDE MONONITRATE 30 MG TAB.SR.24H PO SCH (10:02)
[2017-10-07] MEDS: ALLOPURINOL 100 MG TABLET PO SCH (10:02)
[2017-10-07] MEDS: FLUTICASONE PROP NASAL SPRAY 16 GM BOTTLE NS SCH (10:03)
[2017-10-07] MEDS: CHOLECALCIFEROL 1,000 UNIT TABLET PO SCH (10:03)
[2017-10-07] MEDS: METOPROLOL SUCCINATE XL 50 MG TAB.SR.24H PO SCH (10:03)
[2017-10-07] MEDS: BUMETANIDE 1 MG TABLET PO SCH ×2 (10:03→17:51)
[2017-10-07] MEDS: PANTOPRAZOLE SODIUM 40 MG TABLET.DR PO SCH (10:03)
[2017-10-07] MEDS: STIOLTO RESPIMAT INHALER INH SCH (10:04)
[2017-10-07] MEDS: INSULIN REGULAR, HUMAN 300 UNIT/3 ML VIAL SQ PRN (12:40)
--- NOTE | 2017-10-07 16:21 | NUR ---
I agree Addendum: 10/07/17 at 1621 by DORIAN URBAN OT Amended: Links added.
--- NOTE | 2017-10-07 16:22 | NUR ---
I agree Addendum: 10/07/17 at 1622 by DORIAN URBAN OT Amended: Links added.
--- NOTE | 2017-10-07 16:22 | NUR ---
I agree Addendum: 10/07/17 at 1623 by DORIAN URBAN OT Amended: Links added.
[2017-10-07] MEDS: RIVAROXABAN 10 MG TABLET PO SCH (17:54)
[2017-10-07 19:30] VITALS: BP 114/52
--- NOTE | 2017-10-07 19:30 | NUR ---
Received patient from day shift nurse. Patient denies pain or any discomfort at this time. No sob noted. Vital signs stable at start of shift. Pertinent assessment completed. on o2 via NC at 1.5L. Left toe dressing is clean, dry, intact. No s/s of redness or infection noted. Bed in low position & locked. Room checked for safety at start of shift. Call light within reach. Will continue to monitor patient through shift.
[2017-10-07] MEDS: ATORVASTATIN 20 MG TABLET PO SCH (20:39)
[2017-10-07] MEDS: TAMSULOSIN HCL 0.4 MG CAP.SR.24H PO SCH (20:39)
[2017-10-07] MEDS: MAGNESIUM OXIDE 400 MG TABLET PO SCH (20:39)
[2017-10-08] MEDS: IPRATROPIUM BROMIDE 0.5 MG/2.5 ML NEBU NEB SCH ×4 (00:43→18:53)
[2017-10-08] MEDS: ALBUTEROL SULFATE 2.5 MG/ 0.5 ML NEBU NEB SCH ×4 (00:43→18:52)
[2017-10-08] MEDS: BLOOD SUGAR DIAGNOSTIC 1 EACH STRIP VI SCH ×4 (06:34→20:40)
--- NOTE | 2017-10-08 06:44 | NUR ---
Patient stable through shift. No acute distress noted. All needs attended to. Kept clean & dry. Medications administered as ordered per MD. No s/s of hyperglycemia or hypoglycemia noted. Blood sugar this AM at 123. No insulin coverage needed. Safety measures implemented. Call light within reach. Will endorse to day shift nurse.
--- NOTE | 2017-10-08 08:00 | NUR ---
RECIEVED PT AT THE PT ACTIVITY ROOM, IN GOOD SPIRITS. NO APPARENT DISTRESS NOTED. ON O2 AT 1.5LNC IN USE. VERY PLEASANT. WALKED BACK IN HIS ROOM WITH A WALKER ACCOMPANIED BY PT. NO SOB NOTED.
[2017-10-08 08:05] LABS: BASOPHILS % (AUTO) 0.9 % (0.0-2.0); EOSINOPHILS # (AUTO) 0.1 K/uL (0.0-0.7); EOSINOPHILS % (AUTO) 1.3 % (0.0-7.0); HEMATOCRIT 29.6 % (36.7-47.1); HEMOGLOBIN 9.6 g/dL (12.5-16.3); LYMPHOCYTES # (AUTO) 0.7 K/uL (20.0-40.0); LYMPHOCYTES % (AUTO) 12.6 % (20.5-51.5); MEAN CORPUSCULAR HEMOGLOBIN 24.5 uug (23.8-33.4); MEAN CORPUSCULAR HGB CONC 32 g/dL (32.5-36.3); MEAN CORPUSCULAR VOLUME 75.6 fL (73.0-96.2); MONOCYTES # (AUTO) 0.5 K/uL (2.0-10.0); MONOCYTES % (AUTO) 9.1 % (0.0-11.0); NEUTROPHILS % (AUTO) 76.1 % (38.5-71.5); PLATELET COUNT (AUTO) 110 K/uL (152-348); RED BLOOD CELL COUNT(AUTO) 3.91 MIL/uL (4.06-5.63); WHITE BLOOD COUNT (AUTO) 5.2 K/uL (3.6-10.2)
[2017-10-08 08:24] LABS: ALANINE AMINOTRANSFERASE 34 U/L (16-63); ALKALINE PHOSPHATASE 129 U/L (50-136); ASPARTATE AMINOTRANSFERASE 28 U/L (15-37); BILIRUBIN,TOTAL 0.6 mg/dL (0.2-1.0); CARBON DIOXIDE 32 mmol/L (21-32); CHLORIDE 98 mmol/L (98-107); CREATININE 1.8 mg/dL (0.6-1.3); GLUCOSE 129 mg/dL (74-106); PHOSPHOROUS 3.1 mg/dL (2.5-4.9); POTASSIUM 4.1 mmol/L (3.5-5.1); TOTAL PROTEIN, SERUM 6.9 g/dL (6.4-8.2); UREA NITROGEN, BLOOD 69 mg/dL (7-18)
[2017-10-08 08:34] VITALS: BP 120/62
[2017-10-08] MEDS: STIOLTO RESPIMAT INHALER INH SCH (08:43)
[2017-10-08] MEDS: CHOLECALCIFEROL 1,000 UNIT TABLET PO SCH (08:44)
[2017-10-08] MEDS: ALLOPURINOL 100 MG TABLET PO SCH (08:44)
[2017-10-08] MEDS: PANTOPRAZOLE SODIUM 40 MG TABLET.DR PO SCH (08:44)
[2017-10-08] MEDS: BUMETANIDE 1 MG TABLET PO SCH ×2 (08:44→17:09)
[2017-10-08] MEDS: FLUTICASONE PROP NASAL SPRAY 16 GM BOTTLE NS SCH (08:44)
[2017-10-08] MEDS: METOPROLOL SUCCINATE XL 50 MG TAB.SR.24H PO SCH (08:48)
[2017-10-08] MEDS: ISOSORBIDE MONONITRATE 30 MG TAB.SR.24H PO SCH (08:49)
[2017-10-08] MEDS: INSULIN REGULAR, HUMAN 300 UNIT/3 ML VIAL SQ PRN ×2 (11:58→20:44)
--- NOTE | 2017-10-08 12:30 | NUR ---
PT COUGHING ON AND OFF PRODUCTIVELY. PT CLAIMED THAT SPUTUM IS PINKISH RED TINGED AND ITS NOT ANYTHING NEW. TOLD PT TO SAVE SPECIMEN NEXT TIME.
--- NOTE | 2017-10-08 13:00 | NUR ---
SEEN AND EXAMINED BY DR PANG. PT AMBULATING AROUND THE WHITAKER WITH PT.
--- NOTE | 2017-10-08 13:15 | NUR ---
INFORMED DR ELIZONDO OF PT'S BLOOD TINGED COUGH. NO ORDERS MADE.
--- NOTE | 2017-10-08 15:00 | NUR ---
PT HAD A NICE SHOWER. WOUND DRESSING ON THE LEFT BIG TOE DRY SCAB DONE.
[2017-10-08] MEDS: RIVAROXABAN 10 MG TABLET PO SCH (17:13)
[2017-10-08 19:30] VITALS: BP 114/64
--- NOTE | 2017-10-08 19:30 | NUR ---
Patient lying comfortably at start of shift with no acute distress noted. Pertinent assessment completed. Vital signs within normal limits. On 1.5L o2 via NC. Denies SOB and pain. Left toe dressing is clean, dry, intact. On 1,200ML/day fluid restriction. Per day shift RN patient already consumed 1020mL of fluid today. Call light within reach of patient. Will continue to monitor through shift.
[2017-10-08] MEDS: ATORVASTATIN 20 MG TABLET PO SCH (20:40)
[2017-10-08] MEDS: TAMSULOSIN HCL 0.4 MG CAP.SR.24H PO SCH (20:41)
[2017-10-08] MEDS: MAGNESIUM OXIDE 400 MG TABLET PO SCH (20:41)
[2017-10-09] MEDS: IPRATROPIUM BROMIDE 0.5 MG/2.5 ML NEBU NEB SCH ×3 (00:39→13:21)
[2017-10-09] MEDS: ALBUTEROL SULFATE 2.5 MG/ 0.5 ML NEBU NEB SCH ×3 (00:40→13:21)
[2017-10-09] MEDS: BLOOD SUGAR DIAGNOSTIC 1 EACH STRIP VI SCH ×2 (06:30→11:54)
--- NOTE | 2017-10-09 06:34 | NUR ---
Blood sugar this AM is 139. Will endorse to day shift nurse to cover patient with insulin with breakfast tray. No s/s of hyperglycemia or hypoglycemia noted through the shift. All needs attended to. All medications administered as ordered per MD. Patient compliant & cooperative with care. Fluid restriction maintained through shift. Safety measures implemented. Call light within right of patient. Will endorse to oncoming nurse.
[2017-10-09 08:00] VITALS: BP 124/46
[2017-10-09] MEDS: STIOLTO RESPIMAT INHALER INH SCH (08:44)
[2017-10-09] MEDS: CHOLECALCIFEROL 1,000 UNIT TABLET PO SCH (08:44)
[2017-10-09] MEDS: PANTOPRAZOLE SODIUM 40 MG TABLET.DR PO SCH (08:44)
[2017-10-09] MEDS: FLUTICASONE PROP NASAL SPRAY 16 GM BOTTLE NS SCH (08:44)
[2017-10-09] MEDS: BUMETANIDE 1 MG TABLET PO SCH (08:44)
[2017-10-09] MEDS: METOPROLOL SUCCINATE XL 50 MG TAB.SR.24H PO SCH (08:45)
[2017-10-09] MEDS: ALLOPURINOL 100 MG TABLET PO SCH (08:45)
[2017-10-09 08:46] VITALS: BP 124/46
[2017-10-09] MEDS: ISOSORBIDE MONONITRATE 30 MG TAB.SR.24H PO SCH (08:46)
[2017-10-09] MEDS: INSULIN REGULAR, HUMAN 300 UNIT/3 ML VIAL SQ PRN (08:48)
--- NOTE | 2017-10-09 10:00 | NUR ---
PT SEEN ON ROUNDING. pt continues to be alert and oriented x3. pt vitals stable. no new injuries noted. will continue to monitor.
--- NOTE | 2017-10-09 15:33 | NUR ---
pt. discharged in the afternoon. vitals assessed and stable. pt continues to need oxygen. pt has oxygen at home. pt given discharge instructions given to pt. pt family verbalizes understanding. pt given all belongings. pt signed belongings list along with discharge instructions. pt verbalizes understanding. pt pt left with original copies. pt given respimat empty one and a full one. no sob noted. no signs of acute distress.
[2017-10-09] MEDS ORDERED: RIVAROXABAN 15 MG TABLET PO SCH (18:00)
== END 2017-10-09 15:47 | disposition home health service (06) | DRG 291 ==
PROVIDERS: ADMIT Physical Medicine & Rehabilitation Pain Medicine; ATTEND Physical Medicine & Rehabilitation Pain Medicine
DX: I13.0 Hypertensive heart and chronic kidney disease with heart failure and stage 1 through stage 4 chronic kidney disease, or unspecified chronic kidney disease (principal); I50.43 Acute on chronic combined systolic (congestive) and diastolic (congestive) heart failure; E11.22 Type 2 diabetes mellitus with diabetic chronic kidney disease; E11.59 Type 2 diabetes mellitus with other circulatory complications; I48.91 Unspecified atrial fibrillation; I48.92 Unspecified atrial flutter; J44.9 Chronic obstructive pulmonary disease, unspecified; D64.9 Anemia, unspecified; I25.10 Atherosclerotic heart disease of native coronary artery without angina pectoris; I25.2 Old myocardial infarction; N18.9 Chronic kidney disease, unspecified; Z79.01 Long term (current) use of anticoagulants; Z95.1 Presence of aortocoronary bypass graft; E78.5 Hyperlipidemia, unspecified; N40.0 Benign prostatic hyperplasia without lower urinary tract symptoms; Z86.79 Personal history of other diseases of the circulatory system; Z87.891 Personal history of nicotine dependence; S90.932A Unspecified superficial injury of left great toe, initial encounter; X58.XXXA Exposure to other specified factors, initial encounter; Y93.9 Activity, unspecified; Y92.009 Unspecified place in unspecified non-institutional (private) residence as the place of occurrence of the external cause; I73.9 Peripheral vascular disease, unspecified; Z88.7 Allergy status to serum and vaccine
CPT/HCPCS: 36415; 70030-TC; 71045; 71046; 73630; 83735; 84100; 84550; 85025; 92523; 92526; 92610; 94640; 94664; 97110; 97112; 97116; 97165; 97530; 97535; C1758; J1815; J3535; J3590; J8499